=== PATIENT | male | born 1965 | race Caucasian/White ===

== ENCOUNTER 2023-06-04 09:33 | Emergency (ER) | payer SELFPAY ==
[2023-06-04 09:39] VITALS: BP 167/107
[2023-06-04 10:02] VITALS: BMI 32.4
[2023-06-04 10:05] VITALS: BP 176/100
--- NOTE | 2023-06-04 10:27 | ED.GENMED ---
History of Present Illness
General
Chief Complaint: Breathing Problem
Time Seen by Provider: 06/04/23 10:00
Travel History
Have you had any contact with someone who has COVID-19?: No
Do you have any symptoms of coronavirus? Fever > 100 degrees, chills, cough, shortness of breath, sore throat, loss of taste or smell, muscle aches, or headache?: Yes
Symptoms:: SOB
History of Present Illness
History of Present Illness:
57-year-old male with history of hypertension and chronic tobacco abuse presents to the emergency department for evaluation of night sweats and exertional shortness of breath beginning 2 days ago. The fevers, myalgias, or arthralgias. He does have
nasal congestion and sore throat that is been ongoing for the past 4 to 5 days. He did have negative COVID test over the weekend, notes that he was positive for COVID approximately 6 weeks ago. Denies any chest pain with exertion or at rest. No
nausea, vomiting, or diarrhea
Review of Systems
Review of Systems
Allergies reviewed?: Yes
All Other Systems: ROS reviewed and negative except as documented in HPI and ROS
Phy Exam
Physical Exam
Physical Exam:
GEN: Well appearing, NAD, WDWN
Eyes: PERRLA, EOMs intact, no scleral icterus
HENT: NCAT, oral mucosa moist
Lungs: Normal respiratory effort, intermittent inspiratory and expiratory wheezes heard throughout all lung hugo but good air exchange throughout, no rales or rhonchi
Cardiac: RRR, no M/R/G, no peripheral edema. Radial pulses 2+ bilat
Neuro: AO x 3, no focal deficits to BUE/BLE, normal sensation throughout
MSK: No gross deformity or ecchymosis.
Skin: No rashes, petechiae. Normal color, no pallor or jaundice.
Psych: Calm, cooperative, proper hygiene
Scores
Heart Failure Risk
Heart Failure Risk Score: Not Applicable
Course
Orders/Labs/Results
Orders:
Orders
06/04/23 10:26
Electrocardiogram (*1) Urgent
Reason for Study: Shortness of Breath
EKG- Treatment ONCE
CR Chest - 2 Views Urgent
Comment:
Reason For Exam: SOB, night sweats
06/04/23 11:06
Influenza A+B Rapid Molecular Urgent
CARIN Source: Nasal Swab
Specimen Description:
Vital Signs
Initial and Last Documented VS:
Initial Vital Signs
Temp Pulse Resp BP Pulse Ox
98.7 F 87 18 167/107 96
06/04/23 09:39 06/04/23 09:39 06/04/23 09:39 06/04/23 09:39 06/04/23 09:39
Last Documented Vital Signs
Temp Pulse Resp BP Pulse Ox
98.7 F 87 18 176/100 94
06/04/23 09:39 06/04/23 09:39 06/04/23 09:39 06/04/23 10:05 06/04/23 11:08
MDM/Problems Addressed
MDM/Problems Addressed:
57-year-old male presents with URI symptoms with shortness of breath and night sweats. His chest x-ray is clear, his vital signs are normal, he has clear lungs on exam. Had an home COVID test negative and also had a recent COVID infection last
month. Negative influenza here. Noted to be hypertensive, has a known history of hypertension but is not medicated. Will start the patient on amlodipine once daily, encourage close primary care follow-up. He has no chest pain with exertion to
suggest angina, no chest pain or shortness of breath at rest concerning for PE
Comment
Comment:
EKG independently interpreted by me shows normal sinus rhythm at a rate of [address] changes concerning for ischemia, QTc of 440
*Critical Care Note
Total Time (30-74mins, 75-104mins- exclusive of procedures): Not Applicable
ED Attending Note
-
Portions of this chart may have been created with voice recognition software.� Occasional wrong word or��sound alike� substitutions may have occurred due to the inherent limitations of voice recognition software.
Discharge Plan
Departure
Patient Disposition: Home (Routine Discharge)
Date of Disposition: 06/04/23
Time of Disposition: 11:34
Patient with high blood pressure during this ER visit?: No
Discharge Problem:
Breath, shortness, Hypertension, uncontrolled
Instructions: Shortness of Breath (Dyspnea) (DC)
Prescriptions:
New
amlodipine 5 mg tablet
5 mg PO DAILY Qty: 30 0RF
Referrals:
Tirso Merchant MD [Family Provider] -
Activity Restrictions/Additional Instructions:
Please follow-up with your primary care physician regarding your elevated blood pressure. Your symptoms are likely due to a upper respiratory tract infection and this should improve within the next 5 to 7 days.
If you develop progressively worsening shortness of breath or any exertional chest pain please return for reevaluation
Interventions
Interventions:
*Risk Screen - Suicide Last Done: 06/04/23 09:41
*General Assessment Last Done: 06/04/23 09:41
*Neglect/Abuse Screening Last Done: 06/04/23 09:41
ED- Fall Risk Assessment Last Done: 06/04/23 10:02
*ED COVID-19 Vaccine History Last Done: 06/04/23 09:41
*Nursing Disposition Last Done: 06/04/23 11:43
ED- Cardiac Assessment Last Done: 06/04/23 10:02
ED- Pulmonary Assessment Last Done: 06/04/23 10:02
Discharge Date and Time
Discharge Date/Time: 06/04/23 11:44
== END 2023-06-04 11:44 | disposition home or self-care (01) ==
LOC: EMR 09:33
PROVIDERS: EMERGENCY PHYSICIAN Emergency Medicine; FAMILY PHYSICIAN Family Medicine
DX: R06.02 Shortness of breath (principal); I10 Essential (primary) hypertension
CPT/HCPCS: 99285; 71046; 87502; 93005

== ENCOUNTER → 2024-09-15 07:35 | Outpatient (REF) | payer BC, SELFPAY | LOC: HWRAD 07:35 | PROVIDERS: ATTENDING PHYSICIAN Physician Assistant | DX: R14.0 Abdominal distension (gaseous) (principal) | CPT/HCPCS: 76700 ==